=== PATIENT | female | born 1980 | race African-American/Black ===

== ENCOUNTER 2018-11-14 21:56 | Emergency (ER) | payer BC ==
[~2018-11-14] VITALS: Ht 172.7 cm; Wt 124.7 kg
[2018-11-14 22:04] VITALS: BP 150/90
--- NOTE | 2018-11-14 22:04 | NUR ---
TO BED # 8 AMBULATORY
[2018-11-14] MEDS ORDERED: IBUPROFEN 800 MG TAB PO ONE (22:20)
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
--- NOTE | 2018-11-14 22:24 | NUR ---
Dr. Duncan evaluating patient at bedside.
[2018-11-14 23:10] VITALS: BP 138/86
--- NOTE | 2018-11-14 23:10 | NUR ---
Patient discharged with v/s stable. Written and verbal after care instructions given and explained. Patient alert, oriented and verbalized understanding of instructions. Ambulatory with steady gait. All questions addressed prior to discharge. ID band removed. Patient advised to follow up with PMD. Rx of IBUPROFEN, FLEXERIL given. Patient educated on indication of medication including possible reaction and side effects. Opportunity to ask questions provided and answered.
== END 2018-11-14 23:10 | disposition home or self-care (01) ==
LOC: MED 21:56
DX: S39.012A Strain of muscle, fascia and tendon of lower back, initial encounter (principal); W18.30XA Fall on same level, unspecified, initial encounter; Y93.89 Activity, other specified; Y92.89 Other specified places as the place of occurrence of the external cause; Y99.8 Other external cause status
CPT/HCPCS: 99283

== ENCOUNTER 2019-06-17 21:34 | Emergency (ER) | payer BC ==
[~2019-06-17] VITALS: Ht 172.7 cm; Wt 136.1 kg
--- NOTE | 2019-06-17 21:55 | NUR ---
PT AMBULATED TO ER BED 09
[2019-06-17 21:56] VITALS: BP 139/95
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
--- NOTE | 2019-06-17 23:48 | NUR ---
collected flu and strep a and sent to lab.
[2019-06-18 01:10] VITALS: BP 142/97
--- NOTE | 2019-06-18 01:10 | NUR ---
Patient discharged with v/s stable. Written and verbal after care instructions given and explained. Patient alert, oriented and verbalized understanding of instructions. Ambulatory with steady gait. All questions addressed prior to discharge. ID band removed. Patient advised to follow up with PMD. Rx of TAMIFLU, PROMETHAZINE/DEXTROMETHORPHAN given. Patient educated on indication of medication including possible reaction and side effects. Opportunity to ask questions provided and answered.
== END 2019-06-18 01:10 | disposition home or self-care (01) ==
LOC: MED 21:34
DX: J10.1 Influenza due to other identified influenza virus with other respiratory manifestations (principal); Z87.39 Personal history of other diseases of the musculoskeletal system and connective tissue
CPT/HCPCS: 87081; 87804; 99283

== ENCOUNTER 2019-10-13 21:09 | Emergency (ER) | payer BC ==
[~2019-10-13] VITALS: Ht 172.7 cm; Wt 145.1 kg
[2019-10-13 21:20] VITALS: BP 128/87
[2019-10-13] MEDS: KETOROLAC 60 MG/2 ML VIAL IM ONE (21:46)
[2019-10-13 21:50] VITALS: BP 128/87
== END 2019-10-13 21:50 | disposition home or self-care (01) ==
LOC: MED 21:09
DX: M79.604 Pain in right leg (principal); F17.200 Nicotine dependence, unspecified, uncomplicated
CPT/HCPCS: 96372; 99283; J1885

== ENCOUNTER 2019-12-08 12:56 | Emergency (ER) | payer BC ==
[~2019-12-08] VITALS: Ht 172.7 cm; Wt 145.1 kg
[2019-12-08 13:00] VITALS: BP 152/116
--- NOTE | 2019-12-08 13:49 | NUR ---
pt to bed 12
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
[2019-12-08 14:23] LABS: APPEARANCE,URINE HAZY (CLEAR); BILIRUBIN,URINE NEGATIVE (NEGATIVE); BLOOD, URINE NEGATIVE (NEGATIVE); COLOR,URINE DARK YELLOW (YELLOW); LEUKOCYTE ESTERASE ,URINE NEGATIVE (NEGATIVE); NITRITE, URINE NEGATIVE (NEGATIVE); PH,URINE 5.5 (5.0-9.0); UGLUCOSE NEGATIVE (NEGATIVE)
[2019-12-08 15:02] VITALS: BP 152/116
== END 2019-12-08 15:02 | disposition home or self-care (01) ==
LOC: MED 12:56
DX: R30.0 Dysuria (principal); F17.210 Nicotine dependence, cigarettes, uncomplicated
CPT/HCPCS: 81003; 81025; 99283

== ENCOUNTER 2020-12-14 07:37 | Emergency (ER) | payer BC, SELFPAY ==
[~2020-12-14] VITALS: Ht 172.7 cm; Wt 120.2 kg
[2020-12-14 07:44] VITALS: BP 143/95
[2020-12-14] MEDS ORDERED: AZIT250T4 PO (09:18)
[2020-12-14] MEDS ORDERED: ROBAC PO (09:18)
[2020-12-14 09:29] VITALS: BP 143/95
== END 2020-12-14 09:28 | disposition home or self-care (01) ==
LOC: MED 07:37
DX: J20.9 Acute bronchitis, unspecified (principal)
CPT/HCPCS: 71045; 99283

== ENCOUNTER 2021-02-02 11:52 | Emergency (ER) | payer BC, SELFPAY ==
[~2021-02-02] VITALS: Ht 172.7 cm; Wt 113.6 kg
[~2021-02-02 11:52] MED LIST: AZIT250T4 PO; ROBAC PO
[2021-02-02 12:01] VITALS: BP 138/83
--- NOTE | 2021-02-02 12:10 | NUR ---
40 Y/O FEMALE C/O SORE THROAT THAT STARTED YESTERDAY. +BODY ACHES, CHILLS, WEAKNESS, AND SUBJECTIVE FEVER. DENIES ANYONE SICK AT HOME. TONSILS ARE SWOLLEN/RED WITH WHITE PUSS ON TONSILS. PT RATES PAIN 8/10 AND STATES PAIN INCREASES WITH SWALLOW/EATING. PT A/O X4 WITH EVEN AND UNLABORED RESPIRATIONS. PMH:RHEUMATOID ARTHRITIS NKDA
[2021-02-02] MEDS ORDERED: IBUPROFEN 600 MG TAB PO ONE (12:45)
[2021-02-02] MEDS ORDERED: DEXAMETHASONE 10 MG/ML VIAL IM ONE (12:45)
--- NOTE | 2021-02-02 13:31 | NUR ---
NOVEL AND STREP SWABS COLLECTED AND SENT TO LAB. PT MEDICATED AND SENT TO [facility] AT THIS TIME.
--- NOTE | 2021-02-02 14:22 | NUR ---
PT SWEATING AND REQUESTING RETAKE OF TEMPERATURE. 99.1 ORAL. OLGA ALDRICH MADE AWARE
[2021-02-02] MEDS ORDERED: ACET-10509 PO (14:56)
[2021-02-02] MEDS ORDERED: IBUP-2213 PO (14:56)
[2021-02-02] MEDS ORDERED: PENI500T20 PO (14:56)
[2021-02-02 15:05] VITALS: BP 117/88
--- NOTE | 2021-02-02 15:06 | NUR ---
Patient discharged with v/s stable. Written and verbal after care instructions MEDICATIONS AND TONSILLITIS given and explained. Patient alert, oriented and verbalized understanding of instructions. Ambulatory with STEADY GAIT. All questions addressed prior to discharge. ID band removed. Patient advised to follow up with PMD. Rx of TYLENOL EXTRA STRENGTH, IBUPROFEN, AND PENICILLIN given. Patient educated on indication of medication including possible reaction and side effects. Opportunity to ask questions provided and answered.
== END 2021-02-02 15:06 | disposition home or self-care (01) ==
LOC: MED 11:52
DX: J03.90 Acute tonsillitis, unspecified (principal); Z20.822 Contact with and (suspected) exposure to COVID-19; M79.10 Myalgia, unspecified site; F17.210 Nicotine dependence, cigarettes, uncomplicated; Z79.899 Other long term (current) drug therapy
CPT/HCPCS: 87081; 96372; 99283; J1100; U0003

== ENCOUNTER 2021-03-09 22:53 | Emergency (ER) | payer BC ==
[~2021-03-09] VITALS: Ht 172.7 cm; Wt 113.4 kg
[~2021-03-09 22:53] MED LIST changes: +ACET-10509 PO; +IBUP-2213 PO; +PENI500T20 PO
[2021-03-09 22:55] VITALS: BP 129/79
--- NOTE | 2021-03-09 22:55 | NUR ---
TO BED AMBULATORY
--- NOTE | 2021-03-09 23:45 | NUR ---
ERMD AT BEDSIDE FOR MEDICAL EVALUATION.
--- NOTE | 2021-03-09 23:54 | NUR ---
PATIENT ASSESSED , TREATED, AND D/C BY ERMD. NO NURSING INTERVENTIONS NEEDED.
[2021-03-09 23:55] VITALS: BP 129/79
--- NOTE | 2021-03-09 23:55 | NUR ---
Patient discharged with v/s stable. Written and verbal after care instructions given and explained. Patient alert, oriented and verbalized understanding of instructions. Ambulatory with steady gait. All questions addressed prior to discharge. ID band removed. Patient advised to follow up with PMD. Rx of CLYNDAMICN GEL given. Patient educated on indication of medication including possible reaction and side effects. Opportunity to ask questions provided and answered. Patient left without signing paperwork.
[2021-03-10] MEDS ORDERED: CLIN30GE5 TP (00:08)
== END 2021-03-09 23:55 | disposition home or self-care (01) ==
LOC: MED 22:53
DX: L70.9 Acne, unspecified (principal)
CPT/HCPCS: 99283

== ENCOUNTER 2022-05-16 08:16 | Emergency (ER) | payer BC ==
[~2022-05-16] VITALS: Ht 175.3 cm; Wt 90.7 kg
[~2022-05-16 08:16] MED LIST changes: +CLIN30GE5 TP
[2022-05-16 08:26] VITALS: BP 155/97
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
--- NOTE | 2022-05-16 08:45 | NUR ---
XRAY AT BEDSIDE
[2022-05-16] MEDS ORDERED: AMPICILLIN/SULBACTAM 3 GM VIAL IM ONE (10:40)
[2022-05-16] MEDS ORDERED: AMOX1TAB8 PO (10:42)
[2022-05-16] MEDS ORDERED: AMPICILLIN/SULBACTAM 3 GM in NACL 0.9% 100 ML IV ONE (11:00)
--- NOTE | 2022-05-16 11:04 | NUR ---
PER ERMD NO CULTURES NEEDED 1 TIME DOSE AND PT GETTING DC
[2022-05-16] MEDS ORDERED: IBUPROFEN 600 MG TAB PO ONE (12:05)
[2022-05-16 12:14] VITALS: BP 135/74
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
== END 2022-05-16 12:14 | disposition home or self-care (01) ==
LOC: MED 08:16
DX: S69.91XA Unspecified injury of right wrist, hand and finger(s), initial encounter (principal); Y04.1XXA Assault by human bite, initial encounter; Y93.89 Activity, other specified; Y92.89 Other specified places as the place of occurrence of the external cause; Y99.8 Other external cause status
CPT/HCPCS: 73130; 90471; 90715; 96365; 99284; J0295; Q0092